=== PATIENT | male | born 2000 | race Caucasian/White ===

== ENCOUNTER 2022-09-05 18:31 | Emergency (ER) | payer OTHER ==
[~2022-09-05] VITALS: Ht 182.9 cm; Wt 129.7 kg
== END 2022-09-05 19:53 | disposition home or self-care (01) ==
LOC: ER 18:31
DX: H61.22 Impacted cerumen, left ear (principal)
CPT/HCPCS: 99282

== ENCOUNTER 2022-12-04 15:33 | Emergency (ER) | payer OTHER ==
[~2022-12-04] VITALS: Ht 185.4 cm; Wt 128.4 kg
== END 2022-12-04 16:55 | disposition home or self-care (01) ==
LOC: ER 15:33
DX: H61.21 Impacted cerumen, right ear (principal)
CPT/HCPCS: 99282

== ENCOUNTER 2023-12-04 07:08 | Emergency (ER) | payer OTHER ==
[~2023-12-04] VITALS: Ht 177.8 cm; Wt 127.0 kg
[2023-12-04] MEDS ORDERED: ONDA4ODT MM (08:57)
[2023-12-04] MEDS ORDERED: OXYACE7.5T PO (08:57)
[2023-12-04 09:00] VITALS: BP 114/86
== END 2023-12-04 09:25 | disposition home or self-care (01) ==
LOC: ER 07:08
DX: S82.392A Other fracture of lower end of left tibia, initial encounter for closed fracture (principal); V03.09XA Pedestrian with other conveyance injured in collision with car, pick-up truck or van in nontraffic accident, initial encounter; Y92.480 Sidewalk as the place of occurrence of the external cause
CPT/HCPCS: 29515; 72170; 73552; 73562-LT; 73590; 96374-59; 96375-59; 99284-25; A9270; J2405; J3010

== ENCOUNTER 2023-12-10 11:07 | Day surgery (SDC) | payer OTHER ==
[2023-12-10] VITALS (26 sets, daily range): BP systolic 117–164; BP diastolic 70–96
[~2023-12-10] VITALS: Ht 180.3 cm; Wt 122.5 kg
[~2023-12-10 11:07] MED LIST: ONDA4ODT MM; OXYACE7.5T PO
--- NOTE | 2023-12-10 13:28 | NUR ---
zHistory, Chart, Medications and Allergies reviewed before start of procedure. Pre-Op teaching done. Pt verbalizes understanding. Patient confirms NPO status and agrees with scheduled surgery. Patient States Post-Procedure ride home has been arranged.
--- NOTE | 2023-12-10 18:55 | NUR ---
Discharge instructions reviewed with patient. Patient verbalizes understanding. Copy given to patient to take home.Rx given to pt mother.Pt discharged to home, out via wheelchair with discharge instructions and belongings on hand.
== END 2023-12-10 18:55 | disposition home or self-care (01) ==
LOC: ORSCMMR 11:07 → ORD 11:07
PROVIDERS: Orthopaedic Surgery Sports Medicine
PROC: 0QSH06Z Reposition Left Tibia with Intramedullary Internal Fixation Device, Open Approach (ICD-10-PCS; principal; 2023-12-10 13:00)
DX: S82.242A Displaced spiral fracture of shaft of left tibia, initial encounter for closed fracture (principal); V03.19XA Pedestrian with other conveyance injured in collision with car, pick-up truck or van in traffic accident, initial encounter; G47.33 Obstructive sleep apnea (adult) (pediatric); E66.9 Obesity, unspecified; Z68.37 Body mass index [BMI] 37.0-37.9, adult
CPT/HCPCS: 73590; 82947; A9270; C1713; C1769; J0171; J0690; J1100; J1170; J2001; J2250; J2405; J2704; J2765; J3010; J7120

== ENCOUNTER → 2024-05-02 | Outpatient (CLI) | payer OTHER ==
[2024-05-02 16:23] LABS: BASOPHILS ABSOLUTE AUTO 0.09 K/mm3 (0.00-0.23); BASOPHILS PERCENT AUTO 1 % (0-2); EOSINOPHILS ABSOLUTE AUTO 0.19 K/mm3 (0.00-0.68); EOSINOPHILS PERCENT AUTO 1 % (0-6); Hematocrit 49.7 % (37.0-53.0); Hemoglobin 16.2 g/dL (13.5-17.5); IMMATURE GRAN ABSOLUTE AUTO 0.09 K/mm3 (0.00-0.10); IMMATURE GRAN PERCENT AUTO 1 % (0-1); LYMPHOCYTES ABSOLUTE AUTO 1.48 K/mm3 (0.84-5.20); LYMPHOCYTES PERCENT AUTO 9 % (21-46); MONOCYTES ABSOLUTE AUTO 0.56 K/mm3 (0.16-1.47); MONOCYTES PERCENT AUTO 3 % (4-13); Mean Corpuscular HGB 28.1 pg (26.0-34.0); Mean Corpuscular HGB Conc 32.6 g/dL (31.5-36.5); Mean Corpuscular Volume 86 fL (80-100); Mean Platelet Volume 10.1 fL (9.1-12.4); NEUTROPHILS ABSOLUTE AUTO 13.85 K/mm3 (1.96-9.15); NEUTROPHILS PERCENT AUTO 85 % (41-73); Platelet Count 424 K/mm3 (150-400); RDW Coefficient Variation 13.4 % (11.7-14.2); RDW Standard Deviation 42.3 fL (35.1-46.3); Red Blood Cell Count 5.76 M/mm3 (4.30-5.90); White Blood Cell Count 16.26 K/mm3 (4.00-11.30)
[2024-05-02 17:14] LABS: Albumin, Blood 4.5 g/dL (3.4-5.0); Bilirubin, Total 0.4 mg/dL (0.1-1.0); Bun/Creatinine Ratio 23.5 (12.0-20.0); Calcium, Blood 9.8 mg/dL (8.5-10.1); Creatinine, Blood 0.64 mg/dL (0.60-1.20); Globulin, Blood 4.4 g/dL (2.2-4.0); Potassium, Blood 4.2 mmol/L (3.5-5.5); Total Protein, Blood 8.9 g/dL (6.4-8.2)
== END ==
LOC: LAB 13:17 → LAB SHORT 13:17
PROVIDERS: Student in an Organized Health Care Education/Training Program
DX: A05.9 Bacterial foodborne intoxication, unspecified (principal)
CPT/HCPCS: 36415; 80053; 85025

== ENCOUNTER 2025-05-21 20:59 | Emergency (ER) | payer OTHER ==
[~2025-05-21] VITALS: Ht 182.9 cm; Wt 124.7 kg
[2025-05-21] MEDS ORDERED: AMOCLA875 PO (21:44)
[2025-05-21] MEDS ORDERED: Diphth,Pertuss(Acell),Tet Vac 0.5 ML VIAL IM ONE (21:45)
[2025-05-21] MEDS ORDERED: Amoxicillin/Clavulanate K 875 MG Tab PO ONE (21:45)
[2025-05-21 22:12] VITALS: BP 136/72
== END 2025-05-21 22:12 | disposition home or self-care (01) ==
LOC: ER 20:59
DX: S81.851A Open bite, right lower leg, initial encounter (principal); W54.0XXA Bitten by dog, initial encounter; Z23 Encounter for immunization
CPT/HCPCS: 90471; 90715; 99283-25; A9270